=== PATIENT | female | born 1960 | race Caucasian/White ===

== ENCOUNTER → 2024-11-06 13:29 | Outpatient (REF) | payer OTHER, SELFPAY | LOC: WDC 13:29 | PROVIDERS: ATTENDING PHYSICIAN Internal Medicine Hematology & Oncology; FAMILY PHYSICIAN Family Medicine | DX: Z12.31 Encounter for screening mammogram for malignant neoplasm of breast (principal); Z85.3 Personal history of malignant neoplasm of breast; C50.411 Malignant neoplasm of upper-outer quadrant of right female breast | CPT/HCPCS: 77063; 77067 ==

== ENCOUNTER 2025-01-25 14:55 | Inpatient (IN) | payer OTHER, SELFPAY ==
[2025-01-25] VITALS (7 sets, daily range): BP systolic 123–148; BP diastolic 60–75; BMI 25.1; BMI 24.4
[2025-01-25 12:26] LABS: COVID-19 Antigen Negative (Negative)
[2025-01-25 12:27] LABS: Hematocrit 32.8 % (37.0-47.0); Hemoglobin 11.2 g/dL (12.0-16.0); Mean Corp Hgb Conc. 34.1 g/dL (33.0-37.0); Mean Corpuscular Hgb 30.3 pg (27.0-31.0); Mean Corpuscular Volume 88.6 fL (81.0-99.0); Mean Platelet Volume 8.6 fL (7.4-10.4); Platelet Count 478 10^3/uL (130-400); Red Cell Dist. Width 13.8 % (11.5-14.5); White Blood Cell Count 34.2 10^3/uL (4.8-10.8)
--- NOTE | 2025-01-25 12:29 | ED.GENMED ---
History of Present Illness
General
Chief Complaint: Abnormal Lab Value
Source: patient
Exam Limitations: none
Time Seen by Provider: 01/25/25 11:50
History of Present Illness
History of Present Illness:
64yoF with a history of breast cancer in 2014 currently in remission presenting for evaluation of malaise. Patient has been feeling weak and fatigued for the past week and a half. She also reports decreased appetite, cough, and shortness of
breath. She has been drinking fluids but not eating much. She denies any fevers or chills. [facility]. Lab work was obtained and her white count was found to be elevated at 34 and her sodium was 128.
She was referred to the ED for evaluation. She also had a chest x-ray done during her urgent care visit and was told it was abnormal.
Past History
Past History
ED Past Medical History: None
ED Past Surgical History: None
Social History
Tobacco: Former smoker
Alcohol: Occasional
Family History
Family History: Negative Diabetes, Hypertension, Early CAD, Asthma or Cancer
Phy Exam
General Physical Exam
General Presentation: well appearing and no apparent distress
General age: appears stated age
General Skin: warm and dry
General Habitus: normal
General Mental: alert
ENT Exam
ENT Exam: normocephalic
Cardiovascular Exam
Cardiovascular Exam: regular rate/rhythm, no edema and no murmur
Pulmonary Exam
Pulmonary Exam: no respiratory distress and other (Frequent cough. +Bilateral rales. Speaking in full sentences without difficulty. )
Neurological Exam
Neurological Exam: alert
Vivek Coma Scale
Eye Opening: Spontaneous
Verbal Response: Oriented
Motor Response: Obeys Commands
GCS Total Score: 15
Skin Exam
Skin Exam: normal color and warm/dry
Psychiatric Exam
Psychiatric Exam: normal mood/affect
Course
Orders/Labs/Results
Orders:
Orders
01/25/25 12:01
CBC/With Diff [Complete Blood Count/With Diff] Urgent
CMP [Comprehensive Metabolic Panel] Urgent
COVID-19 Antigen Urgent
Source: Nasal Swab
Serum Osmolality Urgent
Comment: ADD ON
Influenza A+B Rapid Molecular Urgent
ALEXANDRE Source: Nasal Swab
Specimen Description:
01/25/25 12:28
Electrocardiogram (*1) Urgent
Reason for Study: Shortness of Breath
EKG- Treatment ONCE
Troponin I Urgent
0.9% Sodium Chloride 500 ml [Nss] 500 ml IV BOLUS
CR Chest - 2 Views Urgent
Comment:
Reason For Exam: SOB
01/25/25 13:05
Lactate Level [Lactic Acid] Urgent
Blood Culture Q30M
ALEXANDRE Source: Blood/Venous
Specimen Description:
Blood Culture Q30M
ALEXANDRE Source: Blood/Venous
Specimen Description:
01/25/25 13:40
TSH Reflex To Free T4 Urgent
Urinalysis Reflex To Culture Urgent
Date Specimen was Collected: 01/25/25
Time Specimen was Collected: 12:46
Urine Microscopic Reflex Cult Urgent
Urine Culture Urgent
ALEXANDRE Source: U
Specimen Description:
Date Specimen was Collected: 01/25/25
Time Specimen was Collected: 12:46
01/25/25 13:49
CefTRIAXone [Rocephin] 2,000 mg IV NOW STA
Doxycycline [Vibramycin] 100 mg PO NOW STA
01/25/25 14:39
Sterile Water [Sterile Water For Injection] 20 ml .ROUTE .STK-MED
01/25/25 14:47
Add On- LAB Urgent
Tests Added?: serum osmo
0.9% Sodium Chloride 500 ml [Nss] 500 ml IV BOLUS
01/25/25 14:48
Admit/Transfer Patient As Directed
Co-Sign Provider:
Level of Care: Inpatient admission
Assign to:: Medical/Surgical
Physician / Group: Yg Chin
Diagnosis: community acquired pneumonia, hyponatremia, transaminitis
Reason for Hospitalization: community acquired pneumonia, hyponatremia, transaminitis
Expected length of stay greater than two midnights?: Yes
ELOS- Estimated Length of Stay in days: 3
I certify the patient meets the requirements for IP care: Yes
Urine Osmolality Random [Osmolality, Random Urine] Urgent
PRN Pain Medication Management As Directed
May give lesser potent ordered pain med per pt: Yes
preference::
Protocol:: Medication orders for pain may be administered in a
manner that supports deferring to patient preference
when the pt is:
- Requesting an ordered lesser potent pain medication.
Least to most potent pain medications are defined
as: acetaminophen < NSAID < tramadol < opioids
(morphine, oxycodone, hydromorphone).
- Requesting a lesser dose of the same medication IF
ORDERED.
- Requesting a less intrusive route of administration
if both routes are prescribed by the provider (PO <
IV).
01/25/25 14:49
Code Status As Directed
Resuscitation Status: Full Code
Abnormal Lab Results
01/25/25 01/25/25
12:01 13:40
WBC 34.2 H 10^3/uL
(4.8-10.8)
RBC 3.70 L 10^6/uL
(4.20-5.40)
Hgb 11.2 L g/dL
(12.0-16.0)
Hct 32.8 L %
(37.0-47.0)
Plt Count 478 H 10^3/uL
(130-400)
Abs Immat Gran (auto) 1.5 H 10^3/uL
(0-0.05)
Absolute Neuts (auto) 30.5 H 10^3/uL
(1.4-6.5)
Absolute Monos (auto) 1.0 H 10^3/uL
(0.1-0.6)
Immature Gran % 4.4 H %
(0-0.5)
Neutrophils % 89.0 H %
(42.2-75.2)
Lymphocytes % 3.5 L %
(20.5-51.1)
Sodium 128 L mmol/L
(135-145)
Chloride 92 L mmol/L
(98-107)
BUN 20 H mg/dl
(7-17)
Glucose 138 H mg/dl
(70-99)
Total Bilirubin 2.2 H mg/dl
(0.2-1.3)
AST 43 H U/L
(14-36)
ALT 39 H U/L
(0-35)
Alkaline Phosphatase 315 H U/L
(38-126)
Total Protein 5.9 L g/dl
(6.3-8.2)
Albumin 2.9 L g/dl
(3.5-5.0)
Ur Occult Blood Reflex 4+ A
(Negative)
Urine Bilirubin 1+ A
(Negative)
Urine Urobilinogen 3+ A
(Neg - 1+)
Leukocyte Esterase Rfl 3+ A
(Negative)
Urine Bacteria (Reflex) Few A
(Negative)
Urine Albumin (Reflex) 3+ A
(Neg - Trace)
01/25/25 12:01
01/25/25 12:01
Vital Signs
Initial and Last Documented VS:
Initial Vital Signs
Temp Pulse Resp BP Pulse Ox
97.8 F 93 16 148/75 98
01/25/25 11:32 01/25/25 11:32 01/25/25 11:32 01/25/25 11:32 01/25/25 11:32
Last Documented Vital Signs
Temp Pulse Resp BP Pulse Ox
97.8 F 84 24 125/71 95
01/25/25 11:32 01/25/25 12:00 01/25/25 12:00 01/25/25 11:57 01/25/25 12:00
MDM/Problems Addressed
Differential Diagnosis Includes:
64yoF here with malaise, cough, SOB x 1.5 weeks. Sent in by urgent care for leukocytosis and hyponatremia. Remote hx of breast cancer. VSS. She is non-toxic appearing. Rales noted on lung exam with frequent cough. Differential diagnosis includes but
is not limited to: pneumonia, viral illness, malignancy, dehydration
Initial ED plan: Check septic workup, COVID/flu swab, troponin/EKG, UA, and CXR. IV fluid bolus.
*EKG
Interpreted by ED Provider?: Yes
EKG Intrepretation Date: 01/25/25
Heart Rate: 80
Rate: normal
Rhythm: sinus
[place]: normal axis
Interval: normal interval
QRS Pattern: normal QRS
Ischemia: no ischemia
*Critical Care Note
Total Time (30-74mins, 75-104mins- exclusive of procedures): Not Applicable
Update Note
Update Note:
Labs reveal a leukocytosis with a white count of 34 with a left shift. Lactate within normal limits. Sodium is 128 chloride 92. Renal function stable. Mild transaminitis also present although bilirubin is normal. Chest x-ray shows right sided
opacities suspicious for possible pneumonia. IV Rocephin and doxycycline ordered. Patient admitted for further management.
ED Attending Note
-
Portions of this chart may have been created with voice recognition software.� Occasional wrong word or��sound alike� substitutions may have occurred due to the inherent limitations of voice recognition software.
Discharge Plan
Departure
Patient Disposition: Admit
Date of Disposition: 01/25/25
Time of Disposition: 14:07
Presentation/result/management discussed w/ accepting MD/DO: Hospitalist
Discharge Problem:
Pneumonia, Hyponatremia, Leukocytosis
Interventions
Interventions:
*Risk Screen - Suicide Last Done: 01/25/25 11:32
*Neglect/Abuse Screening Last Done: 01/25/25 11:32
ED- Fall Risk Assessment Last Done: 01/25/25 12:24
[2025-01-25 12:41] LABS: ALT (SGPT) 39 U/L (0-35); AST (SGOT) 43 U/L (14-36); Albumin 2.9 g/dl (3.5-5.0); Alkaline Phosphatase 315 U/L (38-126); Blood Urea Nitrogen 20 mg/dl (7-17); Calcium 8.9 mg/dl (8.4-10.2); Carbon Dioxide 27 mmol/L (22-30); Chloride 92 mmol/L (98-107); Estimated Creatinine Clearance 70 ml/min; Glucose 138 mg/dl (70-99); Potassium 3.6 mmol/L (3.5-5.1); Sodium 128 mmol/L (135-145); Total Bilirubin 2.2 mg/dl (0.2-1.3); Total Protein 5.9 g/dl (6.3-8.2); eGFR > 60.00
[2025-01-25 12:50] LABS: % Basophils 0.1 % (0-2); % Immature Granulocytes 4.4 % (0-0.5); % Lymphocytes 3.5 % (20.5-51.1); Absolute Immature Granulocytes 1.5 10^3/uL (0-0.05); Absolute Lymphocytes 1.2 10^3/uL (1.2-3.4); Absolute Neutrophils 30.5 10^3/uL (1.4-6.5); Nucleated Red Blood Cells % 0 %
[2025-01-25] MEDS: NSS 500 IV (13:42)
[2025-01-25 13:52] LABS: Lactic Acid 1.7 mmol/L (0.7-2.0)
[2025-01-25 13:53] LABS: Troponin I < 0.012 ng/ml
[2025-01-25 14:11] LABS: Urine Albumin 3+ (Neg - Trace); Urine Bilirubin 1+ (Negative); Urine Character Clear (Clear); Urine Color Amber; Urine Glucose Negative (Negative); Urine Ketone Negative (Negative); Urine Leukocyte 3+ (Negative); Urine Nitrite Negative (Negative); Urine Occult Blood 4+ (Negative); Urine Specific Gravity 1.015 (<1.030); Urine Urobilinogen 3+ (Neg - 1+)
--- NOTE | 2025-01-25 14:11 | HPS.HSE ---
Family Physician
-
Family Physician: Jessica Lawson
Chief Complaint
-
malaise
History of Present Illness
Patient is a 64-year-old female with past medical history significant for hypertension and breast cancer (2014) who presented to [facility] ED for evaluation of malaise, mild cough and intermittent headaches. Patient states approximately 10
days ago she started with increased fatigue, mild dry cough, intermittent headaches, mild labored breathing, decreased appetite and increased thirst. Patient reports her food intake has been down and she has been drinking significantly increased
fluids. She did mention that she has had some coworkers at work who have been ill recently and she did not wear a mask when in their precence. She denies any dizziness, fever, chills, diaphoresis, chest pain, nausea, vomiting, constipation, diarrhea
or urinary symptoms.
Medical History
Past Medical History
Past Medical History: Reports Other
Additional Past Medical History:
breast cancer (2014)
hypertension
Past Surgical History: Reports Other
Additional Past Surgical History:
perianal cyst removal
port insertion
port removal
US guided biopsy
lumpectomy and sentinel nodes
Social History
Tobacco: Former Smoker (quit in 2005)
Alcohol: None
Drug: None
Living: Alone
Employment: Retired (works part-time job that she planning to leave )
Family History
Family History: Not pertinent
Allergies / Home Medications
Allergies reflects when Allergies were last updated in [facility].
Home Medications with original date entered in [facility]
Allergy/Medication List:
Allergies
Allergy/AdvReac Type Severity Reaction Status Date / Time
latex [Latex] Allergy Unknown Unknown Verified 01/25/25 11:34
bee venom protein (honey bee) Allergy Anaphylaxis Verified 01/25/25 12:00
Home Medications
acetaminophen 160 mg/5 mL oral liquid 960 mg PO DAILYPRN PRN mild pain 01/25/25
aspirin 325 mg tablet 650 mg PO DAILYPRN PRN body aches, Tylenol out 01/25/25
Review of Systems
-
History Source: Patient
Constitutional: Reports Fatigue
EENT: Reports No Symptoms
Respiratory: Reports Cough and Trouble Breathing (mild labored breathing )
Cardiac: Reports No Symptoms
Abdomen/GI: Reports Anorexia
: Reports No Symptoms
Musculoskeletal: Reports No Symptoms
Skin: Reports No Symptoms
Neurological: Reports No Symptoms
Endocrine: Reports Polydipsia
Hematologic/Lymphatic: Reports No Symptoms
Psych: Reports No Symptoms
Physical Exam
Vital Signs
Vital Signs
Temp Pulse Resp BP Pulse Ox
97.8 F 84 24 125/71 95
01/25/25 11:32 01/25/25 12:00 01/25/25 12:00 01/25/25 11:57 01/25/25 12:00
Physical Exam
General: Well Developed, Well Nourished, No Apparent Distress, Comfortable and Conversant
HEENT: NormoCephalic, Moist mucous membranes, Atraumatic, [place] Conjunctivae, Nose Appears Normal and Ears Appear Normal
Respiratory: Clear, Rhonchi and Crackles
Cardiac: S1/S2 and Regular Rhythm; No Murmur, Rub or Gallop
Breast: Deferred by me
GI: Soft, Non Tender, Non Distended and Normal Bowel Sounds; No Organomegaly
Rectal: Deferred by Provider
Genito-urinary: Deferred by me
Musculoskeletal: No Clubbing, No Cyanosis and No Edema
Skin: Warm and IV/Catheter Site; No Rash
Neuro: Awake, Alert, AO x 3 and Nonfocal/grossly intact
Psych: Calm and Intact Judgment/Insight
Laboratory Results
-
01/25/25 12:01
01/25/25 12:01
Laboratory Results
Lactic Acid 1.7 mmol/L (0.7-2.0) 01/25/25 13:05
Total Bilirubin 2.2 mg/dl (0.2-1.3) H 01/25/25 12:01
AST 43 U/L (14-36) H 01/25/25 12:01
ALT 39 U/L (0-35) H 01/25/25 12:01
Alkaline Phosphatase 315 U/L (38-126) H 01/25/25 12:01
Troponin I < 0.012 ng/ml 01/25/25 12:28
Data Reviewed
-
Diagnostic Radiology: Report Reviewed by me (CXR: Right middle lobe opacification some patchy left lower lobe opacification which could represent pneumonia. Additional small patchy area of opacification in the right upper lobe such as pneumonia
cannot be excluded. Recommend follow-up imaging to confirm complete resolution as there is a known )
Medical Tests (Nuc Med, Echo, EKG etc): Report Reviewed by me (EKG: NORMAL SINUS RHYTHM)
Lab Data: Labs Reviewed by me (WBC 34.2, Na+ 128, Tot Bili 2.2, AST 43, ALT 39, Alk Phos 315)
Impression/Plan
-
IMPRESSION/PLAN:
#community acquired pneumonia
WBC 34.2, Na+ 128
CXR: Right middle lobe opacification some patchy left lower lobe opacification which could represent pneumonia. Additional small patchy area of opacification in the right upper lobe such as pneumonia cannot be excluded.
Recommend follow-up imaging to confirm complete resolution as there is a known history of Breast carcinoma
EKG: NORMAL SINUS RHYTHM
Covid: negative
Influenza: negative
UA: pending
- Admit to med/surg
- IV antibiotics
- supportive care (IVF, Tylenol, etc.)
#transaminitis
Tot Bili 2.2, AST 43, ALT 39, Alk Phos 315
- trend LFTs
#hyponatremia
Na+ 128
- NS 500 bolus in ED
- NS 60cc/hr for 500cc
- trend Na+
#breast cancer (2014)
s/p lumpectomy and sentinel nodes
currently in remission
#hypertension
Code status: full code
DVT Prophylaxis: lovenox sq
[2025-01-25 14:24] LABS: Urine Squamous Cell >30 /LPF (Few)
[2025-01-25 14:25] LABS: Urine Bacteria Few (Negative); Urine Red Blood Cell 0-2 /HPF (0-2)
[2025-01-25] MEDS: VIBRAMYCIN 100 MG PO ×2 (14:41→20:35)
[2025-01-25] MEDS: ROCEPHIN 2000 MG IV (14:41)
--- NOTE | 2025-01-25 14:48 | W.PN.UPDATE ---
Update Note
Progress Note Update
This note serves as an addendum to the H&P by room service supervisor MELISSA
Hafsa English
HPI
64F HX breast cancer in 2015 currently in remission seen at ER
- for evaluation of malaise, associated with weak and fatigued for the past week and a half.
- noted poor appetite, less POs fluid
- cough, and shortness of breath
ROS:
- denies any fevers or chills
PHX: HX breast cancer in 2015 currently in remission
VSS
01/25/25
11:32
Temp 97.8 F
Pulse 93
Resp Rate 16
Blood pressure 148/75
SaO2 98
Oxygen Mode of Delivery Room air
PE
Gen: Not toxic
HEENT: anicteric
Neck: supple, no LAD
Lungs: symmetric AE, no wheeze
Cor: RRR S1 S2
Abdomen: soft benign exam
COMMODITIES REQUIREMENTS ANALYST: AAO3
MS: no edma
Psych: appropriate
Laboratory Tests
12/08/15 01/25/25 01/25/25
09:30 12:01 12:28
WBC 34.2 H
Hgb 11.2 L
Plt Count 478 H
Sodium 143 128 L
Potassium 3.6
Chloride 92 L
Carbon Dioxide 27
BUN 20 H
Creatinine 0.8
eGFR > 60.00
Glucose 138 H
Lactic Acid
Total Bilirubin 2.2 H
AST 43 H
ALT 39 H
Alkaline Phosphatase 315 H
Troponin I < 0.012
TSH (Reflex)
Urine Nitrite (Reflex)
Leukocyte Esterase Rfl
Urine WBC (Reflex)
SARS-CoV-2 Antigen Negative
01/25/25 01/25/25
13:05 13:40
WBC
Hgb
Plt Count
Sodium
Potassium
Chloride
Carbon Dioxide
BUN
Creatinine
eGFR
Glucose
Lactic Acid 1.7
Total Bilirubin
AST
ALT
Alkaline Phosphatase
Troponin I
TSH (Reflex) Pending
Urine Nitrite (Reflex) Negative
Leukocyte Esterase Rfl 3+ A
Urine WBC (Reflex) Pending
SARS-CoV-2 Antigen NEG
NEG Flu A & B
BCx sent
CXR
Right middle lobe opacification some patchy left lower lobe opacification which could represent pneumonia.
Additional small patchy area of opacification in the right upper lobe such as pneumonia cannot be excluded.
ASSESSMENT & PLAN
Rt ML PA presume CAP
Significant leucocytosis
Poor appetite
- NEG Covid. NEG Flu A & B
- Agree with IV CFTX and PO Doxy
- check Urine Strep Ag, Legionella Ag
- f/u BCx
- Trend WCC, T curve
Hyponatremia and hypochloremia: ADH excess vs water excees
Suspect dehydration
- s/p NS 500 cc at ER - to repeat 500 ccc NS @ 60/H
- check Sr Osm, Ur Osm and Ur Na, TSH
- Trend Na in AM
Abnormal LFTS - suspect AILI
- Trend LFts
HX breast cancer in 2014 currently in remission
S/P Lt lumpectomy
DVT Px: LMWH
Full code
IP MS
[2025-01-25 16:05] LABS: Osmolality Serum 270 mOsm/kg (275-300)
--- NOTE | 2025-01-25 16:26 | PTCARENOTE ---
pt presents from ED via stretcher. pt is AAO*3, Vss, room air. pt denies any pain. pt oriented to the room. call stubbs within the reach. plan of care ongoing.
[2025-01-25] MEDS: NSS 1000 IV (16:30)
[2025-01-25] MEDS: LOVENOX 40 MG SC (17:46)
[2025-01-25 18:52] LABS: Osmolality Urine 272 mOsm/kg (300-900)
[2025-01-26 06:16] LABS: Hematocrit 27.1 % (37.0-47.0); Hemoglobin 9.6 g/dL (12.0-16.0); Mean Corp Hgb Conc. 35.4 g/dL (33.0-37.0); Mean Corpuscular Volume 87.4 fL (81.0-99.0); Mean Platelet Volume 8.8 fL (7.4-10.4); Platelet Count 463 10^3/uL (130-400); Red Cell Dist. Width 13.8 % (11.5-14.5); White Blood Cell Count 23.4 10^3/uL (4.8-10.8)
[2025-01-26 06:34] LABS: ALT (SGPT) 42 U/L (0-35); AST (SGOT) 56 U/L (14-36); Albumin 2.3 g/dl (3.5-5.0); Alkaline Phosphatase 273 U/L (38-126); Blood Urea Nitrogen 18 mg/dl (7-17); Calcium 8.5 mg/dl (8.4-10.2); Carbon Dioxide 25 mmol/L (22-30); Chloride 97 mmol/L (98-107); Estimated Creatinine Clearance 93 ml/min; Glucose 98 mg/dl (70-99); Potassium 3.6 mmol/L (3.5-5.1); Sodium 131 mmol/L (135-145); Total Bilirubin 1.4 mg/dl (0.2-1.3); Total Protein 5.2 g/dl (6.3-8.2); eGFR > 60.00
[2025-01-26 07:55] VITALS: BP 143/72
[2025-01-26] MEDS: NSS 1000 IV (09:44)
[2025-01-26] MEDS: VIBRAMYCIN 100 MG PO (09:44)
--- NOTE | 2025-01-26 09:44 | W.PN.HOSP.TC ---
Today's Communication/Plan
-
c/w IV Abx
Assessment / Plan
Assessment / Plan
Physical Exam
General: Well Developed, Well Nourished, No Apparent Distress, Comfortable and Conversant
HEENT: Normocephalic, Moist mucous membranes, Atraumatic, [place] Conjunctivae, Nose Appears Normal and Ears Appear Normal
Respiratory: bronchial breathing bases ( both sides)
Cardiac: S1/S2
GI: Soft, Non Tender, Non Distended
Rectal: No bleeding
Genito-urinary: No hematuria
Musculoskeletal: No Clubbing, No Cyanosis and No Edema
Skin: Warm, discoloration patches on trunk
Neuro: Awake, Alert, AO x 3 and Nonfocal/grossly intact
Psych: Calm and Intact Judgment/Insight
#Community acquired pneumonia
Although she had leukocytosis, mild tachycardia but doubt sepsis, only localized infection
c/w IV Rocephin
Doxy
f/w blood cultures
Order CT chest to define the extent, likely bilateral PNA per lung exam.
#transaminitis
Tot Bili 2.2, AST 43, ALT 39, Alk Phos 315
No abdominal pain
#hyponatremia
Na+ 128
improving with NS
c/w regular diet , fluid restriction
#breast cancer (2015)
s/p lumpectomy and sentinel nodes
currently in remission
#hypertension
Code status: full code
DVT Prophylaxis: Lovenox sq
Total time spent to see the patient, examine the patient, review data and lab results, discuss treatment plan with patient and nursing staff around 55 minutes
Anticipated Discharge: 24 - 48 hours
Subjective/Interval History
-
Date of Service: January 26, 2025
She feels better
No chest pain
Less cough
No fevers
Objective Data
-
Labs:
Laboratory Results
01/26/25
05:19
WBC 23.4 H
Hgb 9.6 L
Hct 27.1 L
Plt Count 463 H
Sodium 131 L
Potassium 3.6
Chloride 97 L
Carbon Dioxide 25
BUN 18 H
Creatinine 0.6
Glucose 98
Calcium 8.5
Total Bilirubin 1.4 H
AST 56 H
ALT 42 H
Alkaline Phosphatase 273 H
Vital Signs:
Vital Signs
Temp Pulse Resp BP Pulse Ox
97.6 F 74 20 143/72 94
01/26/25 07:55 01/26/25 07:55 01/26/25 07:55 01/26/25 07:55 01/26/25 07:55
I&O
01/25/25 01/26/25 01/27/25
06:59 06:59 06:59
Intake Total 1380 / 1380
Output Total 200 / 200
Balance 1180 / 1180
[2025-01-26 11:44] VITALS: BP 143/97; PULSE 116; O2SAT 97
[2025-01-26] MEDS: ROCEPHIN 2000 MG IV (13:58)
[2025-01-26] MEDS: STERILE WATER FOR INJECTION 20 ML IV (13:58)
--- NOTE | 2025-01-26 15:10 | CON.ID ---
Consultation
-
Date/Time Consultation Requested: January 26, 2025 0643
Date/Time Consultation Performed: January 26, 2025 1511
Requesting Provider: Dr. Catrachita Snider
Performing Provider: Dr. Sarah Orosco
Reason for Consultation: UTI
Chief Complaint / Past History
Chief Complaint
Cough, malaise
History of Present Illness
64-year-old female with history of breast cancer on remission who presented to the hospital January 25 due to persistent cough and shortness of breath. Cough started approximately a week and a half ago productive of thick [place] purplish sputum. No
fevers or chills. + SOB. Appettite very poor. + weakness. No URI sxs. In ED wbc 34.2, Na 128, CXR + opacities. Urine antigen + Strep pneumoniae. She reports she received the pneumococcal vaccine last year.
Past History
Additional Past Medical History:
Hypertension
Right breast cancer status post lumpectomy and chemotherapy
Allergy History:
bee venom protein (honey bee) Allergy (Verified 01/25/25 12:00)
Anaphylaxis
latex [Latex] Allergy (Verified 01/25/25 16:00)
Unknown
Medications Reviewed: Yes
Current Antibiotics:
Ceftriaxone day 2
Doxycycline day 2
Social History
Tobacco: Former Smoker
Alcohol: None
Drug: None
Living: Alone
Family History
Family History: Not Pertinent
Review of Systems
Review of Systems
General: Change in Appetite; Negative Fever or Chills
HEENT: Negative Stiff Neck, Sinus Problems, Headache or Pharyngitis
Respiratory: Dyspnea, Cough and Sputum Production
Gasteroenterology: Negative Nausea, Vomiting or Diarrhea
Genital / Urological: Negative Dysuria or Flank Pain
Endocrine: Weakness and Fatigue
Neurological: Negative Dizziness
All systems: All other systems were reviewed and were negative
Vital Signs
Temp Pulse Resp BP Pulse Ox
97.6 F 74 20 143/72 94
01/26/25 07:55 01/26/25 07:55 01/26/25 07:55 01/26/25 07:55 01/26/25 07:55
Physical Exam
Physical Exam
Constitutional: No Acute Distress and Comfortable
Head: Other (No frontal or maxillary sinus tenderness)
Eyes: No Conjunctival Hemorrhage and Sclera Anicteric
Cardiovascular: Regular Rate and S1/S2
Pulmonary: Rales (crackles R> L)
Gastrointestinal: Soft, Non Tender, Non Distended and Normal Bowel Sounds
Genito-Urinary: Negative CVA Tenderness
Extremities: Negative Edema
Musculoskeletal: Negative Spinal Tenderness
Neurological: AO x 3
Lab / Diagnostic Study Results
01/26/25 05:19
01/26/25 05:19
Abs Immat Gran (auto) 1.5 10^3/uL (0-0.05) H 01/25/25 12:01
Absolute Neuts (auto) 30.5 10^3/uL (1.4-6.5) H 01/25/25 12:01
Absolute Lymphs (auto) 1.2 10^3/uL (1.2-3.4) 01/25/25 12:01
Absolute Monos (auto) 1.0 10^3/uL (0.1-0.6) H 01/25/25 12:01
Absolute Basos (auto) 0.0 10^3/uL (0-0.2) 01/25/25 12:01
Immature Gran % 4.4 % (0-0.5) H 01/25/25 12:01
Neutrophils % 89.0 % (42.2-75.2) H 01/25/25 12:01
Lymphocytes % 3.5 % (20.5-51.1) L 01/25/25 12:01
Monocytes % 3.0 % (1.7-9.3) 01/25/25 12:01
Eosinophils % 0.0 % (0-6) 01/25/25 12:01
Basophils % 0.1 % (0-2) 01/25/25 12:01
Lactic Acid 1.7 mmol/L (0.7-2.0) 01/25/25 13:05
Ur Squamous Epith Cells >30 /LPF (Few) 01/25/25 13:40
Microbiology Results
Micro:
01/25/25 13:05 Blood Culture - Preliminary
Blood/Venous No Growth in 24 hours- Final report to follow
01/25/25 13:05 Blood Culture - Preliminary
Blood/Venous No Growth in 24 hours- Final report to follow
01/25/25 13:40 Urine Culture - Final
Urine No Significant Growth
01/25/25 15:59 Legionella Urinary Antigen - Final
Urine Negative for Legionella pneumophila Serogroup 1 antigen.
A negative result does not rule out the possiblity of
Legionella infection due to other serogroups or species of
Legionella. Clinical correlation is recommended.
Streptococcus pneumoniae Antigen (M - Final
Streptococcus pneumoniae
01/25/25 12:01 Influenza Types A & B (GEORGE) - Final
Nasal Swab Negative for Influenza A & B, NAAT
Negative results must be combined with clinical observations
and patient history.
Nucleic Acid Amplification test (NAAT)performed on the
[employer] platform.
01/25/25 CXR: Right middle lobe opacification some patchy left lower lobe opacification which could represent pneumonia. Additional small patchy area of opacification in the right upper lobe.
01/26/[address]: Bilateral patchy foci of airspace consolidation, most consistent with multifocal pneumonia. No significant pleural effusion.
2. Small subpleural nodules are seen on each side, measuring up to 3 mm in diameter. These nodules are likely related to pneumonia/infection, consider follow-up chest CT in 3-6 months following resolution of the acute event to exclude unlikely
neoplastic nodules.
Assessment / Plan
# Pneumococcal multifocal PNA
# Leukocytosis
- Blood cx's neg.
- Agree with IV ceftriaxone (d2).
- DC doxycycline.
-Trend wbc
[2025-01-26 15:55] VITALS: BP 151/81
--- NOTE | 2025-01-26 16:49 | CM ---
Alert awake oriented patient who lives alone in a one story home with one step to enter.She is independent in driving and in all activities of daily living.Offered VN she declined.
No adaptive devices
Never had VN/SNF
Pharmacy [facility]
PCP Shruthi
PLAN Home no needs
[2025-01-26] MEDS: LOVENOX 40 MG SC (17:20)
[2025-01-26 23:05] VITALS: BP 129/68
[2025-01-26] MEDS: ROBITUSSIN 100 MG PO (23:46)
[2025-01-27 06:45] LABS: Hematocrit 29.8 % (37.0-47.0); Hemoglobin 10.3 g/dL (12.0-16.0); Mean Corp Hgb Conc. 34.6 g/dL (33.0-37.0); Mean Corpuscular Hgb 30.6 pg (27.0-31.0); Mean Corpuscular Volume 88.4 fL (81.0-99.0); Mean Platelet Volume 8.4 fL (7.4-10.4); Platelet Count 618 10^3/uL (130-400); Red Blood Cell Count 3.37 10^6/uL (4.20-5.40); White Blood Cell Count 12.5 10^3/uL (4.8-10.8)
[2025-01-27 06:51] LABS: Blood Urea Nitrogen 17 mg/dl (7-17); Calcium 8.5 mg/dl (8.4-10.2); Carbon Dioxide 24 mmol/L (22-30); Chloride 99 mmol/L (98-107); Estimated Creatinine Clearance 93 ml/min; Glucose 97 mg/dl (70-99); Potassium 4.2 mmol/L (3.5-5.1); Sodium 134 mmol/L (135-145); eGFR > 60.00
[2025-01-27 07:05] VITALS: BP 153/83
--- NOTE | 2025-01-27 10:46 | W.PN.HOSP.TC ---
Today's Communication/Plan
-
likely dc tomorrow after IV Rocephin dose.
Assessment / Plan
Assessment / Plan
Physical Exam
General: Well Developed, Well Nourished, No Apparent Distress, Comfortable and Conversant
HEENT: Normocephalic, Moist mucous membranes, Atraumatic, [place] Conjunctivae, Nose Appears Normal and Ears Appear Normal
Respiratory: less bronchial breathing bases ( both sides)
Cardiac: S1/S2
GI: Soft, Non Tender, Non Distended
Rectal: No bleeding
Genito-urinary: No hematuria
Musculoskeletal: No Clubbing, No Cyanosis and No Edema
Skin: Warm, discoloration patches on trunk
Neuro: Awake, Alert, AO x 3 and Nonfocal/grossly intact
Psych: Calm and Intact Judgment/Insight
#Community acquired pneumonia
Although she had leukocytosis, mild tachycardia but doubt sepsis, only localized infection
She reports feeling better.
c/w IV Rocephin, changed to high dose.
Negative blood cultures
No fever
WBC is coming down
Order CT chest showed multifocal pneumonia, bilateral. No hypoxia upon ambulation.
#transaminitis
Tot Bili 2.2, AST 43, ALT 39, Alk Phos 315
No abdominal pain
#hyponatremia
Na+ 128, up to 134
improving with NS
c/w regular diet , fluid restriction
#breast cancer (2015)
s/p lumpectomy and sentinel nodes
currently in remission
#Essential hypertension
# elevated LFts
No GI symptoms
Advise pt to f/w PCP for further monitoring and imaging.
Code status: full code
DVT Prophylaxis: Lovenox sq
Total time spent to see the patient, examine the patient, review data and lab results, discuss treatment plan with patient and nursing staff around 55 minutes
Anticipated Discharge: Within 24 hours
Subjective/Interval History
-
Date of Service: January 27, 2025
No chest pain
No sob
Objective Data
-
Labs:
Laboratory Results
01/27/25
05:17
WBC 12.5 H
Hgb 10.3 L
Hct 29.8 L
Plt Count 618 H D
Sodium 134 L
Potassium 4.2
Chloride 99
Carbon Dioxide 24
BUN 17
Creatinine 0.5 L
Glucose 97
Calcium 8.5
Vital Signs:
Vital Signs
Temp Pulse Resp BP Pulse Ox
98 F 73 16 153/83 97
01/27/25 07:05 01/27/25 07:05 01/27/25 07:05 01/27/25 07:05 01/27/25 08:00
I&O
01/26/25 01/27/25 01/28/25
06:59 06:59 06:59
Intake Total 1380 / 1380 1380 / 1380
Output Total 200 / 200
Balance 1180 / 1180 1380 / 1380
--- NOTE | 2025-01-27 13:30 | W.PN.ID1 ---
Date of Service
Date of Service: January 27, 2025
Today's Communication
See below.
Assessment / Plan
# Pneumococcal multifocal PNA
# Leukocytosis - trending down
- Blood cx's neg.
-Trend wbc
- Continue IV ceftriaxone (d3).
- Anticipate can dc home tomorrow AM on amoxicillin 1g po q8h (suspension 400mg/5ml, take 12.5 ml q8h) through 02/01/25.
Note: pt has difficulty swallowing pills; she prefers liquid meds.
Chief Complaint
-: Pneumonia
Subjective / Review of Systems
Feeling better. Has more energy. Cough not as bad.
Vital Signs / Physical Exam
Vital Signs
Vital Signs
Temp Pulse Resp BP Pulse Ox
98 F 73 16 153/83 97
01/27/25 07:05 01/27/25 07:05 01/27/25 07:05 01/27/25 07:05 01/27/25 08:00
Physical Exam
Constitutional: No Acute Distress and Comfortable
Cardiovascular: Regular Rate and S1/S2
Pulmonary: Rales (bilateral crackles)
Gastrointestinal: Soft, Non Tender, Non Distended and Normal Bowel Sounds
Extremities: Negative Edema
Neurological: AO x 3
Objective Data
Lab Data
Lab Results
01/27/25 05:17
01/27/25 05:17
Estimated Creat Clear 93 ml/min 01/27/25 05:17
Lactic Acid 1.7 mmol/L (0.7-2.0) 01/25/25 13:05
Total Bilirubin 1.4 mg/dl (0.2-1.3) H 01/26/25 05:19
AST 56 U/L (14-36) H 01/26/25 05:19
ALT 42 U/L (0-35) H 01/26/25 05:19
Alkaline Phosphatase 273 U/L (38-126) H 01/26/25 05:19
Most recent labs reviewed.
Micro Results:
01/26/25 16:49 Respiratory Culture - Preliminary
Sputum Usual Respiratory Maryjane
Gram Stain - Preliminary
01/25/25 13:05 Blood Culture - Preliminary
Blood/Venous No Growth in 24 hours- Final report to follow
01/25/25 13:05 Blood Culture - Preliminary
Blood/Venous No Growth in 24 hours- Final report to follow
01/25/25 13:40 Urine Culture - Final
Urine No Significant Growth
01/25/25 15:59 Legionella Urinary Antigen - Final
Urine Negative for Legionella pneumophila Serogroup 1 antigen.
A negative result does not rule out the possiblity of
Legionella infection due to other serogroups or species of
Legionella. Clinical correlation is recommended.
Streptococcus pneumoniae Antigen (M - Final
Streptococcus pneumoniae
01/25/25 12:01 Influenza Types A & B (GEORGE) - Final
Nasal Swab Negative for Influenza A & B, NAAT
Negative results must be combined with clinical observations
and patient history.
Nucleic Acid Amplification test (NAAT)performed on the
[employer] platform.
01/25/25 CXR: Right middle lobe opacification some patchy left lower lobe opacification which could represent pneumonia. Additional small patchy area of opacification in the right upper lobe.
01/26/[address]: Bilateral patchy foci of airspace consolidation, most consistent with multifocal pneumonia. No significant pleural effusion.
2. Small subpleural nodules are seen on each side, measuring up to 3 mm in diameter. These nodules are likely related to pneumonia/infection, consider follow-up chest CT in 3-6 months following resolution of the acute event to exclude unlikely
neoplastic nodules.
[2025-01-27] MEDS: STERILE WATER FOR INJECTION 20 ML IV (14:11)
[2025-01-27] MEDS: ROCEPHIN 2000 MG IV (14:11)
[2025-01-27 15:32] VITALS: BP 140/76
[2025-01-27] MEDS: LOVENOX 40 MG SC (17:18)
[2025-01-27 23:31] VITALS: BP 156/83
[2025-01-27] MEDS: ROBITUSSIN 100 MG PO (23:48)
[2025-01-28 08:17] VITALS: BP 159/82
--- NOTE | 2025-01-28 09:05 | W.PN.ID1 ---
Date of Service
Date of Service: January 28, 2025
Today's Communication
Can move up today's IV ceftriaxone (d4) to am prior to discharge.
Tomorrow AM at home, start amoxicillin 1g po q8h (suspension 400mg/5ml, take 12.5 ml q8h) through 02/01/25.
Assessment / Plan
# Pneumococcal multifocal PNA
# Leukocytosis - trending down
- Blood cx's neg.
- Can move up today's IV ceftriaxone (d4) to am prior to discharge.
- Tomorrow AM at home, start amoxicillin 1g po q8h (suspension 400mg/5ml, take 12.5 ml q8h) through 02/01/25.
Note: pt has difficulty swallowing pills; she prefers liquid meds.
Chief Complaint
-: Pneumonia
Subjective / Review of Systems
Feeling improved.
Vital Signs / Physical Exam
Vital Signs
Vital Signs
Temp Pulse Resp BP Pulse Ox
98.2 F 76 18 159/82 96
01/28/25 08:17 01/28/25 08:17 01/28/25 08:17 01/28/25 08:17 01/28/25 08:17
Physical Exam
Constitutional: No Acute Distress and Comfortable
Cardiovascular: Regular Rate and S1/S2
Pulmonary: Rales (B/L crackles decreased)
Gastrointestinal: Soft, Non Tender and Non Distended
Extremities: Negative Edema
Neurological: AO x 3
Objective Data
Lab Data
Lab Results
01/27/25 05:17
01/27/25 05:17
Estimated Creat Clear 93 ml/min 01/27/25 05:17
Lactic Acid 1.7 mmol/L (0.7-2.0) 01/25/25 13:05
Total Bilirubin 1.4 mg/dl (0.2-1.3) H 01/26/25 05:19
AST 56 U/L (14-36) H 01/26/25 05:19
ALT 42 U/L (0-35) H 01/26/25 05:19
Alkaline Phosphatase 273 U/L (38-126) H 01/26/25 05:19
Most recent labs reviewed.
Micro Results:
01/25/25 13:05 Blood Culture - Preliminary
Blood/Venous No Growth in 48 hours- Final report to follow
01/25/25 13:05 Blood Culture - Preliminary
Blood/Venous No Growth in 48 hours- Final report to follow
01/26/25 16:49 Respiratory Culture - Preliminary
Sputum Usual Respiratory Maryjane
Gram Stain - Preliminary
01/25/25 13:40 Urine Culture - Final
Urine No Significant Growth
01/25/25 15:59 Legionella Urinary Antigen - Final
Urine Negative for Legionella pneumophila Serogroup 1 antigen.
A negative result does not rule out the possiblity of
Legionella infection due to other serogroups or species of
Legionella. Clinical correlation is recommended.
Streptococcus pneumoniae Antigen (M - Final
Streptococcus pneumoniae
01/25/25 12:01 Influenza Types A & B (GEORGE) - Final
Nasal Swab Negative for Influenza A & B, NAAT
Negative results must be combined with clinical observations
and patient history.
Nucleic Acid Amplification test (NAAT)performed on the
[employer] platform.
01/25/25 CXR: Right middle lobe opacification some patchy left lower lobe opacification which could represent pneumonia. Additional small patchy area of opacification in the right upper lobe.
01/26/[address]: Bilateral patchy foci of airspace consolidation, most consistent with multifocal pneumonia. No significant pleural effusion.
2. Small subpleural nodules are seen on each side, measuring up to 3 mm in diameter. These nodules are likely related to pneumonia/infection, consider follow-up chest CT in 3-6 months following resolution of the acute event to exclude unlikely
neoplastic nodules.
Care Review
Plan reviewed with: Physician (Dr. Snider)
--- NOTE | 2025-01-28 09:47 | W.PN.HOSP.TC ---
Addendum entered and electronically signed by Eliezer Snider MD 01/28/25 10:58:
Addendum
Elevated liver enzyme
I reviewed outpatient blood work in October 2024, normal liver function test. Elevation could be secondary to dehydration while sick. Advised to follow-up with her primary care doctor to repeat the blood work in near future. Patient follows with
Dr. Haung for history of breast cancer
Discussed with patient, she verbalized understanding
End
Original Note:
Today's Communication/Plan
-
dc
Assessment / Plan
Assessment / Plan
Physical Exam
General: Well Developed, Well Nourished, No Apparent Distress, Comfortable and Conversant
HEENT: Normocephalic, Moist mucous membranes, Atraumatic, [place] Conjunctivae, Nose Appears Normal and Ears Appear Normal
Respiratory: less bronchial breathing bases ( both sides)
Cardiac: S1/S2
GI: Soft, Non Tender, Non Distended
Rectal: No bleeding
Genito-urinary: No hematuria
Musculoskeletal: No Clubbing, No Cyanosis and No Edema
Skin: Warm, discoloration patches on trunk
Neuro: Awake, Alert, AO x 3 and Nonfocal/grossly intact
Psych: Calm and Intact Judgment/Insight
#Community acquired pneumonia
Although she had leukocytosis, mild tachycardia but doubt sepsis, only localized infection
She reports feeling better. No cough, fever or shortness of breath
Status post high-dose Rocephin. Appreciate ID help. To repeat chest x-ray in outpatient setting.
Negative blood cultures
WBC normalized
CT chest showed multifocal pneumonia, bilateral. No hypoxia upon ambulation.
#transaminitis
Tot Bili 2.2, AST 43, ALT 39, Alk Phos 315
No abdominal pain
Advised to f/w PCP
#hyponatremia
Na+ 128, up to 134
improving with NS
c/w regular diet ,
#breast cancer (2014)
s/p lumpectomy and sentinel nodes
currently in remission
#Essential hypertension
# elevated LFts
No GI symptoms
Advise pt to f/w PCP for further monitoring and imaging.
Code status: full code
DVT Prophylaxis: Lovenox sq
Total discharge time spent to see the patient, examine the patient, review data and lab results, discuss discharge treatment plan with patient and nursing staff around 67 minutes
Anticipated Discharge: Today
Subjective/Interval History
-
Date of Service: January 28, 2025
She is doing well, no shortness of breath, no hypoxia, no coughing or fever, she feels ready to go home
Objective Data
-
Vital Signs:
Vital Signs
Temp Pulse Resp BP Pulse Ox
98.2 F 76 18 159/82 96
01/28/25 08:17 01/28/25 08:17 01/28/25 08:17 01/28/25 08:17 01/28/25 08:17
I&O
01/27/25 01/28/25 01/29/25
06:59 06:59 06:59
Intake Total 1380 / 1380 720 / 720
Balance 1380 / 1380 720 / 720
[2025-01-28] MEDS: STERILE WATER FOR INJECTION 20 ML IV (09:49)
[2025-01-28] MEDS: ROCEPHIN 2000 MG IV (09:49)
--- NOTE | 2025-01-28 09:52 | W.DCSUMMARY ---
Discharge Summary
Discharge Data
Date of Admission: 01/25/25
Date of Discharge: 01/28/25
-
Pending Results: No
Hospital Course
64-year-old female presented to [facility] ED for evaluation of malaise, mild cough and intermittent headaches. Patient statedd approximately 10 days ago she started with increased fatigue, mild dry cough, intermittent headaches, mild
labored breathing, decreased appetite and increased thirst. She did mention that she has had some coworkers at work who have been ill recently. She denied any dizziness, fever, chills, diaphoresis, chest pain, nausea, vomiting, constipation,
diarrhea or urinary symptoms. Patient was admitted to the hospital. Scan of the chest showed bilateral multifocal pneumonia. Patient did not have hypoxia. Blood culture did not show any growth. She had negative influenza COVID and Legionella
screen test. Urine was positive for streptococcal pneumonia antigen. Patient received IV antibiotic. She was evaluated by infectious disease personal consultant. Patient tolerated treatment well with improvement in her symptoms. She was able to ambulate
independently. 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 She was given prescription of amoxicillin solution. She had mild elevation of liver enzymes. No gastrointestinal symptoms. She was advised to follow-up
with her primary care doctor to repeat the blood work. She was given a prescription to repeat chest x-ray in outpatient setting. Patient was discharged home to finish course of antibiotic in a stable condition.
Discharge Plan
-
Patient Disposition: Home (Routine Discharge)
Discharge Diagnosis/Procedures: -Community-acquired pneumococcal pneumonia, bilateral/multifocal.
You were seen by ID doctor, Dr Orosco. Repeat chest x ray in 1-2 weeks and follow with your family doctor.
-You have elevated liver enzyme, you did not have gastrointestinal problems in the hospital, recommend outpatient follow-up with with your primary care doctor.
Diet: As tolerated
Others Tests: Chest x ray/ script given
Referrals:
Jessica Lawson, [Family Provider] -
Prescriptions:
New
amoxicillin 400 mg/5 mL suspension for reconstitution
1,000 mg PO TID Qty: 100 0RF
Rx Instructions:
Last dose on 02/01/25.
Continued
acetaminophen 160 mg/5 mL Liquid
960 mg PO DAILYPRN PRN (Reason: mild pain)
aspirin 325 mg Tablet
650 mg PO DAILYPRN PRN (Reason: body aches, Tylenol out)
Discharge Orders:
Discharge Patient (As Directed); Ordered 01/28/25
Ordered By: Eliezer Snider
Discharge Date and Time
Discharge Date/Time: 01/28/25 11:25
Print Language: AMHARIC
--- NOTE | 2025-01-28 09:59 | CM ---
MD entered order for discharge.
Spoke with pt she said she agrees with discharge and understood explanation of IMM.
She said her brother Leroy will drive her home.
Declined VN need.
PT eval + no skilled needs.
PLAN Home no needs
== END 2025-01-28 11:25 | disposition home or self-care (01) | DRG 194 ==
LOC: 4 EAST ACU 14:55
PROVIDERS: Nurse Practitioner Family; Physician Assistant; ADMITTING PHYSICIAN Internal Medicine; ATTENDING PHYSICIAN Internal Medicine; EMERGENCY PHYSICIAN Emergency Medicine; FAMILY PHYSICIAN Family Medicine; OTHER PHYSICIAN Internal Medicine Infectious Disease
DX: J18.9 Pneumonia, unspecified organism (principal); E87.1 Hypo-osmolality and hyponatremia; Z85.3 Personal history of malignant neoplasm of breast; I10 Essential (primary) hypertension; Z87.891 Personal history of nicotine dependence; Z79.82 Long term (current) use of aspirin; E87.8 Other disorders of electrolyte and fluid balance, not elsewhere classified; Z92.21 Personal history of antineoplastic chemotherapy; Z11.52 Encounter for screening for COVID-19; R74.01 Elevation of levels of liver transaminase levels
CPT/HCPCS: 71046; 71250; 80048; 80053; 81003; 81015; 83605; 83930; 83935; 84443; 84484; 85025; 85027; 87040; 87070; 87086; 87205; 87449; 87502; 87811; 87899; 93005; 96361; 96374; 97162; 99285

== ENCOUNTER → 2025-02-05 13:13 | Outpatient (REF) | payer OTHER, SELFPAY | LOC: RAD 13:13 | PROVIDERS: ATTENDING PHYSICIAN Internal Medicine; FAMILY PHYSICIAN Family Medicine | DX: J15.0 Pneumonia due to Klebsiella pneumoniae (principal) | CPT/HCPCS: 71046 ==

== ENCOUNTER → 2025-03-19 12:52 | Outpatient (REF) | payer OTHER, SELFPAY | LOC: RAD 12:52 | PROVIDERS: ATTENDING PHYSICIAN Family Medicine | DX: J18.9 Pneumonia, unspecified organism (principal) | CPT/HCPCS: 71046 ==

== ENCOUNTER → 2025-11-11 11:47 | Outpatient (REF) | payer OTHER, SELFPAY | LOC: HWWDC 11:47 | PROVIDERS: ATTENDING PHYSICIAN Internal Medicine Hematology & Oncology; FAMILY PHYSICIAN Family Medicine | DX: Z12.31 Encounter for screening mammogram for malignant neoplasm of breast (principal) | CPT/HCPCS: 77063; 77067 ==